=== PATIENT | male | born 2005 | race Caucasian/White ===

== ENCOUNTER 2025-07-01 13:25 | Outpatient (REF) | payer MEDICAID, SELFPAY ==
--- OUTSIDE RECORDS SUMMARY | 2025-07-01 09:45 | XMS_ITS | Encounter Summary ---
Author Organization [employer] Address [address] [place] [address] Care Team Providers Care Strategic Account Executive Name Role Phone Marisa Admas NP Primary Care Provider [phone] Encounter Details Date Type Department Care Team ([facility] [address] Contact Info) Description 07/01/2025 9:45 AM EDT Office Visit [facility] MEDICINE [address] [place], [place] [phone] Anna Tavares MD [address] [place] [address] Chronic gastritis without bleeding, unspecified gastritis type (Primary Dx) Social History Tobacco Use Types Packs/Day Years Used Date Smoking Tobacco: Never Smokeless Tobacco: Never Tobacco Cessation:Counseling Given: Not Answered Alcohol Use Standard Drinks/Week Comments Yes 0 (1 standard drink = 0.6 oz pur e alcohol) occasionally Alcohol Answer Date Recorded Frequency of Alcohol Consumption Not on file 05/04/2024 Average Number of Drinks Not on file 024 Frequency of Binge Drinking Not on file 12/2023 Score 0 05/04/2024 Depression Answer Date Recorded Patient Health Questionnaire-9 Score 0 04/06/2024 Patient Health Questionnaire-9 Score 0 04/06/2024 Last PHQ-9: Questionnaire Data Not on file 0 04/06/2024 Housing Stability Answer Date Recorded What is your housing situation today? I have gus elkins 03/30/[address] you li ve. Do you have problems with any of the following? None of the above 03/30/2024 Food Insecurity Answer Date Recorded Within the past 12 months, y ou worried that your food would run out before you got money to buy more: Never True 03/30/2024 Within the past 12 months,th e food you bought just didn't last and you didn't have enough money to get more: Never True Transportation Answer Date Recorded In the past 12 months, has l ack of transportation kept you from medical appts, meetings, work or from getting things needed for daily living? No 03/30/2024 Utilities Answer Date Recorded In the past 12 months, has t he [employer], gas, oil or water in[employer]ar[employer] threatened to shut off services in your home? No 03/30/2024 Depression Answer Date Recorded Patient Health Questionnaire-2 Score 0 04/06/2024 Sex and Gender Information Value Date Recorded Sex Assigned at Male 09/02/2022 10:21 AM EDT Legal Sex Male 10:21 AM EDT Gender Identity Male 09/02/2022 10:21 AM EDT Sexual Orientation Straight 09/02/2022 10 :21 AM EDT documented as of this encounter Last Filed Vital Signs Vital Sign Reading Time Taken Comments Blood Pressure 120/82 07/01/2025 9:51 AM EDT Pulse 75 07/01/2025 9:51 AM EDT Temperature 36.3 C (97.3 F) 07/01/2025 9:51 AM EDT Respiratory Rate 20 07/01/2025 9:51 AM EDT Oxygen Saturation 99% 07/01/2025 9:51 AM EDT Inhaled Oxygen Concentration - - Weight 72.2 kg (159 lb 3.2 oz) 07/01/2025 9:51 A M EDT Height 172.7 cm (5' 8 ) 07/01/2025 9:51 AM EDT Body Mass Index 24.21 07/01/2025 9:51 AM EDT documented in this encounter Plan of Treatment Upcoming Encounters Date Type Department Care Team (Late st Contact Info) Description 08/31/2025 9:30 AM EDT Office Visit [facility] MEDICINE [address] [place] [address] Marisa Adams NP [address] [place] [address] Scheduled Orders Name Type Priority Associated Diagnoses Orde r Schedule Helicobacter pylori, Urea Breath Test Lab Routine Chronic gastritis without bleeding, unspecified gastritis type Expected: 07/01/2025 (Approximate), Expires: 07/01/2026 documented as of this encounter Visit Diagnoses Diagnosis Chronic gastritis without bleeding, unspecified gastritis type- Primary documented in this encounter Additional Health Concerns Assessment Noted Time PHQ-9 Depression Total Score: 0 04/06/20 24 11:14 AM EDT documented as of this encounter Care Teams Strategic Account Executive Relationship Specialty Start Date End Date Marisa Adams NP [address] [place] [address] PCP - General Family Medicine 12/30/23 documented as of this encounter
--- OUTSIDE RECORDS SUMMARY | 2025-07-01 13:39 | XMS_ITS | Encounter Summary ---
Author Organization [email or web address] Address [address] [place] [address] [address] [address] Care Team Providers Care Hose Builder Name Role Phone Marisa Adams NP Primary Care Provider Reason for Visit * Reason Onset Date Comments Nurse Triage 06/30/2025 Encounter Details Date Type Department Care Team ([facility] st Contact Info) Description 06/30/2025 Telephone [facility] MEDICINE [address] [place], [place] [phone] Marisa Adams NP [address] [place] [address] Nurse Triage Social History Tobacco Use Types Packs/Day Years Used Date Smoking Tobacco: Never Smokeless Tobacco: Never Alcohol Use Standard Drinks/Week Comments Yes 0 [...] the past 12 months, has t he electric, gas, oil or water company threatened to shut off services in your home? No 03/30/2024 Depression Answer Date Recorded Patient Health Questionnaire-2 Score 0 04/06/2024 Sex and Gender Information Value Date Recorded Sex Assigned at Male 09/02/2022 10:21 AM EDT Legal Sex Male 10:21 AM EDT Gender Identity Male 09/02/2022 10:21 AM EDT Sexual Orientation Straight 09/02/2022 10 :21 AM EDT documented as of this encounter Miscellaneous Notes * Telephone Encounter - Noris Stanley LPN - 06/30/2025 11:12 AM EDT Triage call returned to patient who reports upper abdominal distension occasional acid reflux and occasional vomiting. None in last week no constant pain. No fever and no postural changes. Patient reports had GI issue when younger and now it has presented again. Some slight constipation but not more than 4 days at a time. No PCP appts at time of call. Disposition reviewed and patient in agreementwith plan asK/ tomorrow at 945am. Protocol Used: Abdominal Pain - Upper (Adult) Protocol-Based Disposition: See in Office or Video Visit Today Override (Final) Disposition: See in Office or Video Visit Today or Tomorrow Override Reason: No appointments available Video visit not offered Positive Triage Question: * Patient wants to be seen * All higher-acuity triage questions were negative Care Advice Discussed: * Reasons To Call Back - You become worse * Telephone Encounter - Mingo Tapia - 06/30/2025 11:01 AM EDT Symptom: Abdominal Swelling Outcome: Schedule a same-day appointment or talk to a nurse or provider today Reason: Caller denied all higher acuity questions Please contact mom at [phone]. documented in this encounter Plan of Treatment Upcoming Encounters Date Type Department Care Team ([facility] st Contact Info) Description 08/31/2025 9:30 AM EDT Office Visit [facility] MEDICINE [address] [place] [address] Marisa Adams NP [address] [place] [address] documented as of this encounter Visit Diagnoses Not on filedocumented in this encounter Additional Health Concerns Assessment Noted Time PHQ-9 Depression Total Score: 0 04/06/20 11:14 AM EDT documented as of this encounter Care Teams Hose Builder Relationship Specialty Start Date End Date Marisa Adams NP [address] [place] [address] PCP - General Family Medicine 12/30/23 documented as of this encounter
--- OUTSIDE RECORDS SUMMARY | 2025-07-01 13:39 | XMS_ITS | Encounter Summary ---
Author Organization [employer] Address [address] [place] [address] [address] [place] [address] Care Team Providers Care Java Engineer Name Role Phone Marisa Adams NP Primary Care Provider [phone] Reason for Visit * Reason Comments Med Refill Encounter Details Date Type Department Care Team ([facility] Contact Info) Description 07/01/2025 Refill [facility] MEDICINE [address] [place], [place] [phone] Marias Adams NP [address] [place], [place] [phone] BECKY (generalized anxiety disorder) Social History Tobacco Use Types Packs/Day Years Used Date Smoking Tobacco: Never Smokeless Tobacco: Never Alcohol Use Standard Drinks/Week Comments Yes 0 (1 standard drink = 0.6 oz pur e alcohol) occasionally Alcohol Answer Date Recorded Frequency of Alcohol Consumption Not on file 05/04/2024 Average Number of Drinks Not on file Frequency of Binge Drinking Not on file [...] AM EDT documented as of this encounter Plan of Treatment Upcoming Encounters Date Type Department Care Team (Late st Contact Info) Description 08/31/2025 9:30 AM EDT Office Visit [facility] MEDICINE [address] [place] [address] Marisa Adams NP [address] [place] [address] documented as of this encounter Visit Diagnoses Diagnosis BCEKY (generalized anxiety disorder) Generalized anxiety disorder documented in this encounter Additional Health Concerns Assessment Noted Time PHQ-9 Depression Total Score: 0 04/06/20 11:14 AM EDT documented as of this encounter Care Teams Java Engineer Relationship Specialty Start Date End Date Marisa Adams NP [address] [place] [address] PCP - General Family Medicine 12/30/23 documented as of this encounter
--- OUTSIDE RECORDS SUMMARY | 2025-07-01 13:39 | XMS_ITS | Clinical Summary ---
Author Organization [employer] Address [address] [place] [address] [address] [place] [address] Care Team Providers Care Car Escort Name Role Phone Marisa Adams NP Primary Care Provider [phone] Allergies No known active allergies Medications acyclovir (Zovirax) 5 % cream Apply topically 5 (five) times a day. Apply to affected area for 4 days 5 g 1 3 Active Additional Information Patient not taking.Reported on 07/01/2025 citalopram (CeleXA) 20 MG tabletIndication s:BECKY (generalized anxiety disorder) Take 1 tablet (20 mg) by mouth Once per day. 30 tablet 2 4 Active Additional Information Patient not taking.Reported on 07/01/2025 famotidine (Pepcid) 20 MG tabletIndication s:Chronic gastritis without bleeding, unspecified gastritis type Take 1 tablet (20 mg) by mouth if needed at bedtime for heartburn. 90 tablet 5 07/01/20 26 Active sucralfate (Carafate) 1 g tabletIndication s:Chronic gastritis without bleeding, unspecified gastritis type Take 1 tablet (1 g) by mouth before breakfast, before lunch, before evening meal, and at bedtime. 60 tablet 1 5 07/01/20 26 Active Active Problems Problem Noted Date Diagnosed Date Health care maintenance 04/06/2024 BECKY (generalized anxiety disorder) 04/06/2024 Assessment & Plan (04/06/2024 6:12 PM EDT): Pt is interested in trailing medication for daily anxiety, no sig psychiatric history but persistent daily anxiety for 6-9 months Pt declines therapy today, Trial celexa 10 mg. Medication Indications, side effects and duration of therapy reviewed, pt aware to call clinic for worsening symptoms , any side effects. Follow up in 4-6 weeks Acne 02/06/2017 Atopic conjunctivitis 08/21/2015 Encounters Date Type Department Care Team Description 07/01/2025 9:45 AM EDT Office Visit [facility] MEDICINE [address] [place], [place] [phone] Anna Tavares MD Chronic gastritis without bleeding, unspecified gastritis type (Primary Dx) 07/01/2025 Refill [facility] MEDICINE [address] [place] [address] Marisa Adams NP BECKY (generalized anxiety disorder) 07/01/2025 Travel 06/30/2025 Telephone [facility] MEDICINE [address] [place] [address] Marisa Adams NP Nurse Triage from Last 3 Months Immunizations Immunization Administration Dates Next Due DTaP / Hep B / IPV 02/12/2005,2004, 004 DTaP / Hib 12/17/2005 DTaP, 5 pertussis antigens 02/10/2009,,12/17/2005,02/12,2004,2004 HPV 9-Valent 02/06/2017,08/21/2015 Hep A, ped/adol, 2 dose 02/06/2017,05/16/2014 Hep B, Adolescent or Pediatric 5,2004,2004,08/08 Hib (HbOC) 02/12/2005,2004,2004 IPV 02/10/2009, 5,2004,10/08 Influenza Injectable Quadriv alant Preservative Free IIV4 MDCK 11/14/2020 Influenza injectable quadriv alent preservative free 08/21/2015 Influenza, IIV3, injectable 09/19/2005 MMR 02/10/2009,12/17/2005 Meningococcal MCV4P ACYW-135 12/27/2020,08/21/20 15 Pneumococcal Conjugate PCV 7 09/19/2005, 02/12/2005,2004,10/08 Tdap 08/21/2015 Varicella 02/10/2009,09/19/2005 Family History Medical History Relation Name Comments transposition of great arter Mother Lupus Mother's Sister Lupus Sister Relation Name Status Comments Mother Mother's Sister Sister Social History Tobacco Use Types Packs/Day Years [...] Orientation Straight 09/02/2022 10 :21 AM EDT Last Filed Vital Signs Vital Sign Reading [...] Mass Index 24.21 07/01/2025 9:51 AM EDT Plan of Treatment Upcoming Encounters Date Type Department Care Team ([facility] st Contact Info) Description 08/31/2025 9:30 AM EDT Office Visit [facility] MEDICINE [address] [place], [place] [phone] Marisa Adams, MENDOZA [address] [place] [address] Health Maintenance Due Date Last Done Comments Chlamydia and Gonorrhea Screening 2004 HIV Screening 2004 Disability Screening 2004 Alcohol/Substance Use Screening 2016 Family Planning (PISQ) 2019 Meningococcal B Vaccine (1 of 2 - Standard) 2020 Hepatitis C Screening 2022 COVID-19 Vaccine ( season) 2024 12/12/2021, 11/21/2021 SDOH Screening 03/30/2025 03/30/2024 Depression Screening 04/06/2025 04/06/2024, 04/06/20 24 Influenza Vaccine (#1) 2025 , 08/21/2015, 09/19/2005 DTaP/Tdap/Td Vaccines (7 - Td or Tdap) 08/21/2025 08/21/2015, 02/10/2009, 06/13/2006, Additional history exists Tobacco Screening 07/01/2026 07/01/2025 Zoster Vaccines (1 of 2) 2054 RSV Patients and Patients Aged 60 years or older (1 - 1-dose 75+ series) 2079 Hepatitis B Vaccines Completed 02/12/2005, 02/12/2005, 2004, Additional history exists Pneumococcal Vaccine: Pediatrics (0 to 5 Years) and At-Risk Patients (6 to 49) Years Aged Out 09/19/2005, 02/12/2005, 2004, Additional history exists No longer eligible based on patient's age to complete this topic HIB Vaccines Completed 12/17/2005, 02/01, 2004, Additional history exists IPV Vaccines Completed 02/10/2009, 02/01, 02/12/2005, Additional history exists HPV Vaccines Completed 02/06/2017, 08/21/2015 Hepatitis A Vaccines Completed 02/06/2017, 05/16/20 14 Meningococcal Vaccine Completed 12/27/2020, 015 RSV under 20 months Aged Out No longe r eligible based on patient's age to complete this topic Rotavirus Vaccines Aged Out No longer eligible based on patient's age to complete this topic Insurance C3 Care Teams Car Escort Relationship Specialty Start Date End Date Marisa Adams NP [address] [place] [address] PCP - General Family Medicine 12/30/23
--- OUTSIDE RECORDS SUMMARY | 2025-07-01 13:39 | XMS_ITS | Encounter Summary ---
Author Organization [employer] Address [address] [place] [address] [address] [place] [address] Care Team Providers Care Camp Head Counselor Name Role Phone Marisa Adams NP Primary Care Provider [phone] Encounter Details Date Type Department Care Team (Latest Contact Info) Description 07/01/2025 Travel Social History Tobacco Use Types Packs/Day Years [...] 9:30 AM EDT Office Visit [facility] [address] [place] [address] Marisa Adams NP [address] [place] [address] documented as of this encounter Visit Diagnoses Not on filedocumented in this encounter Additional Health Concerns Assessment Noted Time PHQ-9 Depression Total Score: 0 04/06/20 11:14 AM EDT documented as of this encounter Care Teams Camp Head Counselor Relationship Specialty Start Date End Date Marisa Adams NP [address] [place] [address] PCP - General Family Medicine 12/30/23 documented as of this encounter
--- OUTSIDE RECORDS SUMMARY | 2025-07-01 13:40 | XMS_ITS | Encounter Summary ---
Author Organization [employer] Address [address] [address] Care Team Providers Care Steam Generating Powerplant Mechanic Name Role Phone Stew Enamorado MD Primary Care Prov ider Marisa Adams NP Primary Care Provider [phone] Reason for Visit * Reason Onset Date Comments Call Back Request 11/14/2023 Encounter Details Date Type Department Care Team (Late st Contact Info) Description 11/14/2023 Telephone [facility] MEDICINE [address] [place] [address] Stew Enamorado MD [address] [place] [address] Call Back Request Social History Tobacco Use Types Packs/Day Years Used Date Smoking Tobacco: Never Smokeless Tobacco: Never Sex and Gender Information Value Date Recorded Sex Assigned at Male 09/02/2022 10:21 AM EDT Legal Sex Male 10:21 AM EDT Gender Identity Male 09/02/2022 10:21 AM EDT Sexual Orientation Straight 09/02/2022 10 :21 AM EDT documented as of this encounter Miscellaneous Notes * Telephone Encounter - Sandra Bowser RN - 11/19/2023 3:46 PM EST Returned call to pt mom regarding message below. Mom wanted clarification on what happened during appt with provider last week. Mom informed of referral to Derm placed and provider deferred any med treatment until cause is determined. Mom verbalized understanding and agrees with plan. * Telephone Encounter - Shawn Flores - 11/14/2023 3:36 PM EST Tc from patients mother would like a call back in regards to appt on 11/14 states was seen for a sore on lip and was not prescribed anything documented in this encounter Plan of Treatment Upcoming Encounters Date Type Department Care Team (Late st Contact Info) Description 08/31/2025 9:30 AM EDT Office Visit [facility] MEDICINE [address] [place] [address] Marisa Adams NP [address] [place] [address] documented as of this encounter Visit Diagnoses Not on filedocumented in this encounter Care Teams Steam Generating Powerplant Mechanic Relationship Specialty Start Date End Date Stew Enamorado MD [address] [place] [address] PCP - General Internal Medicine 11/05/23 12/29/23 Marisa Adams NP [address] [place] [address] PCP - General Family Medicine 12/30/23 documented as of this encounter
== END 2025-07-01 13:26 | disposition home or self-care (01) ==
LOC: HO.LNP 13:25
PROVIDERS: Visit Provider Student in an Organized Health Care Education/Training Program
DX: K29.50 Unspecified chronic gastritis without bleeding (principal)
CPT/HCPCS: 83013